=== PATIENT | male | born 1955 | race Caucasian/White ===

== ENCOUNTER 2017-05-31 02:42 | Emergency (ER) | payer OTHER ==
[2017-05-31 03:00] VITALS: TEMP 98.7
--- NOTE | 2017-05-31 03:18 | RAD ---
EXAM: Three view(s) of the left shoulder. INDICATION: Pain. COMPARISON: None. FINDINGS: There is an anterior shoulder dislocation. No acute fractures identified. The AC joint is intact. Surgical anchors are noted within the left humeral head. IMPRESSION: Anterior shoulder dislocation Electronically signed by: Mauro Motley MD 05/31/2017 3:17 AM CDT Workstation: [id number]
--- NOTE | 2017-05-31 03:33 | ED.PDOC ---
History of Present Illness - General Chief Complaint: Upper Extremity Injury Stated Complaint: Left shoulder pain Time Seen by Provider: 05/31/17 03:30 Source: patient - History of Present Illness Initial Comments: Raphael Abbasi 61 y/o male stated slipped and fell forward on the dock tried to brace the his fall stretching both shoulder and felt a pop on left shoulder. Denies neck or head injury. Occurred: just prior to arrival Pain - Upper Extremity: moderate: Upper arm, left Method of Injury: fell Improving Factors: rest Worsening Factors: movement Associated Symptoms: none Allergies/Adverse Reactions: Allergies Lisinopril Allergy (Verified 05/31/17 02:46) Sulfa Antibiotics Allergy (Verified 05/31/17 02:46) Home Medications: Ambulatory Orders Amlodipine Besylate 05/31/17 Simvastatin 05/31/17 Review of Systems - Review of Systems Constitutional: States: no symptoms reported EENTM: States: no symptoms reported Respiratory: States: no symptoms reported Cardiology: States: no symptoms reported Gastrointestinal/Abdominal: States: no symptoms reported Genitourinary: States: no symptoms reported Musculoskeletal: States: see HPI Skin: States: no symptoms reported Past Medical History (General) - Patient Medical History Hx Hypertension: Yes Hx Diabetes: No Hx Cancer: Yes - prostate Surgical History: other - left rotator cuff - Vaccination History Immunizations Up to Date: Yes - Social History Hx Alcohol Use: Yes Family Medical History - Family History Father Family History: Unknown Physical Exam - Physical Exam General Appearance: Alert, Comfortable, No apparent distress Eyes, Ears, Nose, Throat Exam: PERRL/EOMI, normal ENT inspection, TMs normal Neck: non-tender, full range of motion, supple Cardiovascular/Respiratory: regular rate, rhythm, no M/R/G, normal peripheral pulses, no JVD, normal breath sounds Abdominal Exam: non-tender, no organomegaly Back Exam: normal inspection, no CVA tenderness, no vertebral tenderness Shoulder Exam: asymmetry - left loss of deltoid prominence, deformity - left, limited ROM Elbow/Forearm Exam: normal inspection, no evidence of injury Wrist Exam: normal inspection, no evidence of injury Hand Exam: normal inspection, no evidence of injury Neuro/Tendon: normal sensation - deltoid left, normal motor functions, normal tendon functions, responds to pain Mental Status: alert, oriented x 3 Progress - Progress Progress: 05/31/17 04:13 Vital Signs - 8 hr 07/26/17 02:48 Temperature 98.7 F Pulse Rate [ 102 H Right] Respiratory 16 Rate Blood Pressure 148/87 [Right Arm] O2 Sat by Pulse 97 Oximetry - EKG/XRAY/CT XRAY: left shoulder-anterior dislocation Procedures - Joint Reduction left shoulder Conscious Sedation: No Reduction Attempts: 1 - given iv lorazepam and morphine sulfate Pre-Procedure NV Exam: Yes - intact Post Joint Reduction Film: joint reduced - tolerated well Departure - Departure Clinical Impression: Anterior shoulder dislocation Qualifiers: Encounter type: initial encounter Laterality: left Qualified Code(s): S43.015A - Anterior dislocation of left humerus, initial encounter Time of Disposition: 06:04 Disposition: Discharge to Home or Self Care Condition: Good Departure Forms: ED Discharge - Pt. Copy, Patient Portal Self Enrollment Instructions: Shoulder Dislocation, DI for Shoulder Dislocation Activity: no lifting, no pushing/pulling with affected limb Home Medications: Ambulatory Orders Amlodipine Besylate 05/31/17 Simvastatin 05/31/17 Additional Instructions: Follow up with orthopedist in one week call for appointment.
[2017-05-31] MEDS ORDERED: MORPHINE SULFATE INJ 10 MG/ML VIAL ONE (03:46)
[2017-05-31] MEDS ORDERED: NALOXONE HCL INJ 0.4 MG/ML VIAL ONE (03:47)
[2017-05-31] MEDS: MORPHINE SULFATE INJ 10 MG/ML VIAL IV ONE (03:52)
--- NOTE | 2017-05-31 04:19 | RAD ---
EXAM: Two view(s) of the left shoulder. INDICATION: Pain. COMPARISON: 05/31/2017. FINDINGS: The previously described anterior shoulder dislocation has been reduced. There is no acute fracture. Surgical anchors are noted within the left humeral head. The AC joint appears widened measuring up to 1.1 cm. IMPRESSION: Reduction of the anterior shoulder dislocation. Grade 2 AC joint separation Electronically signed by: Mauro Motley MD 05/31/2017 4:18 AM CDT Workstation: [id number]
[2017-05-31] MEDS: HYDROCOD/APAP 10/325 (ER DISP) # 3 tablets PO ONE (04:32)
[2017-05-31] MEDS: NALOXONE HCL INJ 0.4 MG/ML VIAL IV ONE (06:18)
[2017-05-31] MEDS ORDERED: INSULIN, REG.(HUMAN) 100 U/ML VIAL ONE (09:22)
[2017-05-31 09:29] VITALS: BP 136/83; O2SAT 97
== END 2017-05-31 09:28 | disposition home or self-care (01) ==
LOC: ER 02:42
DX: S43.015A Anterior dislocation of left humerus, initial encounter (principal); I10 Essential (primary) hypertension; Z85.46 Personal history of malignant neoplasm of prostate; Z88.2 Allergy status to sulfonamides; Z88.8 Allergy status to other drugs, medicaments and biological substances; W01.0XXA Fall on same level from slipping, tripping and stumbling without subsequent striking against object, initial encounter; Y92.89 Other specified places as the place of occurrence of the external cause
CPT/HCPCS: 73030; J2060; J2270